=== PATIENT | female | born 1950 | race Caucasian/White ===

== ENCOUNTER → 2016-07-24 | Day surgery (SDC) | payer MEDICARE, BC | LOC: MSO 14:11 | DX: Z12.11 Encounter for screening for malignant neoplasm of colon (principal); D12.5 Benign neoplasm of sigmoid colon; K57.30 Diverticulosis of large intestine without perforation or abscess without bleeding; K21.9 Gastro-esophageal reflux disease without esophagitis; K22.70 Barrett's esophagus without dysplasia; Z85.3 Personal history of malignant neoplasm of breast; Z85.820 Personal history of malignant melanoma of skin; Z85.41 Personal history of malignant neoplasm of cervix uteri | CPT/HCPCS: 00810; J3010; J7120 ==

== ENCOUNTER → 2017-03-13 | Outpatient (CLI) | payer MEDICARE, BC | LOC: RAD 09:02 | DX: K22.70 Barrett's esophagus without dysplasia (principal); K21.9 Gastro-esophageal reflux disease without esophagitis; R10.13 Epigastric pain; K76.9 Liver disease, unspecified | CPT/HCPCS: Q9967 ==

== ENCOUNTER → 2017-06-29 | Outpatient (CLI) | payer MEDICARE, BC | LOC: RAD 14:00 | DX: R05 Cough (principal); R06.02 Shortness of breath ==

== ENCOUNTER → 2017-07-05 | Outpatient (CLI) | payer MEDICARE, BC ==
[2017-07-05 13:15] LABS: EOS # 0.1 (0.04-0.40); EOS % 1.5 % (1.0-5.0); HEMATOCRIT 44.2 % (37.0-47.0); HEMOGLOBIN 14.3 g/dL (12.5-16.0); LYMPH# 1.8 (1.50-4.00); MEAN CELL VOLUME 94 fl (78-100); MEAN CORPUSCULAR HEMOGLOBIN 31 pg (27-31); MEAN CORPUSCULAR HGB CONC 32 g/dL (33-37); MEAN PLATELET VOLUME 9.3 fl (7.4-10.4); MONO # 0.5 (0.20-0.80); NEU # 3.5 (1.40-6.50); PLATELET COUNT 182 K/mm3 (130-400); RED BLOOD COUNT 4.68 M/mm3 (4.10-5.30); RED CELL DISTRIBUTION WIDTH 13.4 % (11.5-14.5); WHITE BLOOD COUNT 5.9 K/mm3 (4.8-10.8)
[2017-07-05 13:27] LABS: ALBUMIN 3.5 g/dL (3.5-5.0); BUN/CREATININE RATIO 19.6 (6.0-26.0); CALCIUM 9.2 mg/dL (8.4-10.2); POTASSIUM 3.6 mmol/L (3.6-5.0); TOTAL BILIRUBIN 0.5 mg/dL (0.2-1.3); TOTAL PROTEIN 6.6 g/dL (6.3-8.2)
[2017-07-08 22:17] LABS: GRAM STAIN AMS
== END ==
LOC: RAD 13:01
PROVIDERS: Physician Assistant
DX: J98.4 Other disorders of lung (principal); Z88.0 Allergy status to penicillin

== ENCOUNTER → 2017-08-06 | Outpatient (CLI) | payer MEDICARE, BC | LOC: MAMMO 14:29 → RAD 14:30 → MAMMO 14:30 | DX: Z12.31 Encounter for screening mammogram for malignant neoplasm of breast (principal) ==

== ENCOUNTER 2018-09-08 12:56 | Outpatient (RCR) | payer MEDICARE, BC | END 2018-10-20 13:30 | LOC: PT 12:56 | DX: M22.41 Chondromalacia patellae, right knee (principal); M22.42 Chondromalacia patellae, left knee ==

== ENCOUNTER → 2019-02-11 | Outpatient (CLI) | payer MEDICARE, BC ==
[2019-02-11 09:39] LABS: EOS # 0.1 (0.04-0.40); EOS % 2.6 % (1.0-5.0); HEMATOCRIT 42.3 % (37.0-47.0); HEMOGLOBIN 13.7 g/dL (12.5-16.0); LYMPH# 1.3 (1.50-4.00); MEAN CELL VOLUME 95 fl (78-100); MEAN CORPUSCULAR HEMOGLOBIN 31 pg (27-31); MEAN CORPUSCULAR HGB CONC 32 g/dL (33-37); MEAN PLATELET VOLUME 9.2 fl (7.4-10.4); MONO # 0.4 (0.20-0.80); NEU # 2.1 (1.40-6.50); PLATELET COUNT 240 K/mm3 (130-400); RED BLOOD COUNT 4.47 M/mm3 (4.10-5.30); RED CELL DISTRIBUTION WIDTH 12.4 % (11.5-14.5); WHITE BLOOD COUNT 3.9 K/mm3 (4.8-10.8)
[2019-02-11 09:47] LABS: ALBUMIN 3.8 g/dL (3.4-4.8); POTASSIUM 3.5 mmol/L (3.5-5.1)
[2019-02-11 09:49] LABS: TOTAL PROTEIN 6.4 g/dL (6.2-8.1)
[2019-02-11 09:51] LABS: TOTAL BILIRUBIN 0.7 mg/dL (0.2-1.2)
== END ==
LOC: LAB 09:25
PROVIDERS: Internal Medicine Interventional Cardiology
DX: I77.3 Arterial fibromuscular dysplasia (principal)

== ENCOUNTER → 2019-03-05 | Day surgery (SDC) | payer MEDICARE, BC ==
[2019-03-05 08:06] LABS: CALCIUM 7.1 mg/dL (8.3-10.5)
== END ==
LOC: MSO 07:13 → LAB 07:13 → MSO 10:35
PROVIDERS: Internal Medicine Gastroenterology
DX: K22.70 Barrett's esophagus without dysplasia (principal); K21.9 Gastro-esophageal reflux disease without esophagitis; R10.13 Epigastric pain; I10 Essential (primary) hypertension; Z79.899 Other long term (current) drug therapy; Z88.0 Allergy status to penicillin; Z88.2 Allergy status to sulfonamides; F32.9 Major depressive disorder, single episode, unspecified; G43.909 Migraine, unspecified, not intractable, without status migrainosus; C50.919 Malignant neoplasm of unspecified site of unspecified female breast; Z77.123 Contact with and (suspected) exposure to radon and other naturally occurring radiation; H40.9 Unspecified glaucoma; Z90.710 Acquired absence of both cervix and uterus
CPT/HCPCS: 00731; J2704; J7120

== ENCOUNTER → 2019-04-21 | Outpatient (CLI) | payer MEDICARE, BC | LOC: MAMMO 10:42 | DX: Z12.31 Encounter for screening mammogram for malignant neoplasm of breast (principal) ==

== ENCOUNTER 2019-08-01 12:22 | Emergency (ER) | payer MEDICARE, BC ==
[~2019-08-01] VITALS: Ht 170.2 cm; Wt 68.2 kg
[2019-08-01] MEDS ORDERED: PRAVASTATIN SOD20 MG PO (12:38)
[2019-08-01] MEDS ORDERED: LOSARTAN POTASS25 MG PO (12:39)
[2019-08-01] MEDS ORDERED: AMITRIPTYLINE H10 M2 PO (12:40)
[2019-08-01] MEDS ORDERED: LATANOPROST 2.2.5 ML OU (12:41)
[2019-08-01] MEDS ORDERED: LEXAPRO20 M1 PO (12:41)
[2019-08-01] MEDS ORDERED: CHOLESTYRAMINE1 PO1 PO (12:41)
[2019-08-01] MEDS ORDERED: NIACIN1000 MG PO (12:41)
[2019-08-01] MEDS ORDERED: ULTRAM50 M1 PO (12:42)
[2019-08-01] MEDS ORDERED: EVISTA 60MG60 MG/TAB PO (12:43)
[2019-08-01] MEDS ORDERED: OXYCODONE5 M1 PO (12:43)
[2019-08-01 13:33] LABS: EOS # 0.1 (0.04-0.40); HEMATOCRIT 39.1 % (37.0-47.0); MEAN CELL VOLUME 94 fl (78-100); MEAN CORPUSCULAR HEMOGLOBIN 29 pg (27-31); MEAN CORPUSCULAR HGB CONC 31 g/dL (33-37); MEAN PLATELET VOLUME 8.7 fl (7.4-10.4); MONO # 0.4 (0.20-0.80); NEU # 2.5 (1.40-6.50); PLATELET COUNT 360 K/mm3 (130-400); RED BLOOD COUNT 4.15 M/mm3 (4.10-5.30); RED CELL DISTRIBUTION WIDTH 13.4 % (11.5-14.5); WHITE BLOOD COUNT 3.9 K/mm3 (4.8-10.8)
[2019-08-01 14:17] LABS: D-DIMER 4.55 mg/L FEU (0.15-0.50)
[2019-08-01 14:38] LABS: POTASSIUM 3.5 mmol/L (3.5-5.1)
[2019-08-01 14:39] LABS: CALCIUM 9.5 mg/dL (8.3-10.5)
[2019-08-01 16:42] VITALS: BP 154/75
== END 2019-08-01 16:42 | disposition home or self-care (01) ==
LOC: ED 12:22
PROVIDERS: Family Medicine
DX: F41.9 Anxiety disorder, unspecified (principal); E86.9 Volume depletion, unspecified; I10 Essential (primary) hypertension; E78.5 Hyperlipidemia, unspecified; Z96.652 Presence of left artificial knee joint
CPT/HCPCS: J7030; Q9967

== ENCOUNTER → 2019-11-16 | Outpatient (CLI) | payer MEDICARE, BC ==
[~2019-11-16] MED LIST: AMITRIPTYLINE H10 M2 PO; CHOLESTYRAMINE1 PO1 PO; EVISTA 60MG60 MG/TAB PO; LATANOPROST 2.2.5 ML OU; LEXAPRO20 M1 PO; LOSARTAN POTASS25 MG PO; NIACIN1000 MG PO; OXYCODONE5 M1 PO; PRAVASTATIN SOD20 MG PO; ULTRAM50 M1 PO
[2019-11-16 13:42] LABS: POTASSIUM 3.3 mmol/L (3.5-5.1)
[2019-11-16 13:44] LABS: CALCIUM 9.2 mg/dL (8.3-10.5)
== END ==
LOC: LAB 13:12
PROVIDERS: Internal Medicine Nephrology
DX: I15.8 Other secondary hypertension (principal)

== ENCOUNTER → 2019-11-23 | Outpatient (CLI) | payer MEDICARE, BC ==
[2019-11-23 12:30] LABS: URINE APPEARANCE CLEAR; URINE BILIRUBIN NEGATIVE (NEGATIVE); URINE BLOOD NEGATIVE (NEGATIVE); URINE COLOR YELLOW; URINE GLUCOSE NEGATIVE (NEGATIVE); URINE KETONE NEGATIVE (NEGATIVE); URINE LEUKOCYTE ESTERASE NEGATIVE (NEGATIVE); URINE NITRATE NEGATIVE (NEGATIVE); URINE PROTEIN(semi-quant) NEGATIVE (NEGATIVE); URINE UROBILINOGEN NORMAL (NORMAL)
[2019-11-23 12:32] LABS: POTASSIUM 3.7 mmol/L (3.5-5.1)
[2019-11-23 12:33] LABS: CALCIUM 9.3 mg/dL (8.3-10.5)
== END ==
LOC: LAB 11:59
PROVIDERS: Internal Medicine Nephrology
DX: I15.8 Other secondary hypertension (principal); N17.8 Other acute kidney failure

== ENCOUNTER → 2019-12-29 | Outpatient (CLI) | payer MEDICARE, BC ==
[2019-12-29 11:23] LABS: URINE APPEARANCE CLEAR; URINE BILIRUBIN NEGATIVE (NEGATIVE); URINE BLOOD NEGATIVE (NEGATIVE); URINE COLOR YELLOW; URINE GLUCOSE NEGATIVE (NEGATIVE); URINE KETONE NEGATIVE (NEGATIVE); URINE LEUKOCYTE ESTERASE NEGATIVE (NEGATIVE); URINE NITRATE NEGATIVE (NEGATIVE); URINE PROTEIN(semi-quant) NEGATIVE (NEGATIVE); URINE UROBILINOGEN NORMAL (NORMAL); URINE WBC 0-1 /hpf (0-3)
== END ==
LOC: LAB 10:32
PROVIDERS: Internal Medicine Nephrology
DX: I15.8 Other secondary hypertension (principal); N17.8 Other acute kidney failure

== ENCOUNTER → 2020-01-07 | Outpatient (CLI) | payer MEDICARE, BC ==
[2020-01-07 10:50] LABS: URINE WBC 0 /hpf (0-3)
[2020-01-07 11:15] LABS: URINE APPEARANCE CLEAR; URINE BILIRUBIN NEGATIVE (NEGATIVE); URINE BLOOD TRACE (NEGATIVE); URINE COLOR YELLOW; URINE GLUCOSE NEGATIVE (NEGATIVE); URINE KETONE NEGATIVE (NEGATIVE); URINE LEUKOCYTE ESTERASE NEGATIVE (NEGATIVE); URINE MUCUS PRESENT (NOT PRESENT); URINE NITRATE NEGATIVE (NEGATIVE); URINE PROTEIN(semi-quant) NEGATIVE (NEGATIVE); URINE UROBILINOGEN NORMAL (NORMAL)
== END ==
LOC: LAB 10:45
PROVIDERS: Internal Medicine Nephrology
DX: N17.8 Other acute kidney failure (principal); I15.8 Other secondary hypertension

== ENCOUNTER → 2020-03-03 | Outpatient (CLI) | payer MEDICARE, BC ==
[2020-03-03 11:45] LABS: EOS # 0.2 (0.04-0.40); EOS % 2.8 % (1.0-5.0); HEMATOCRIT 43.9 % (37.0-47.0); LYMPH# 1.4 (1.50-4.00); MEAN CELL VOLUME 94 fl (78-100); MEAN CORPUSCULAR HEMOGLOBIN 30 pg (27-31); MEAN CORPUSCULAR HGB CONC 32 g/dL (33-37); MONO # 0.6 (0.20-0.80); NEU # 3.2 (1.40-6.50); PLATELET COUNT 276 K/mm3 (130-400); RED BLOOD COUNT 4.69 M/mm3 (4.10-5.30); RED CELL DISTRIBUTION WIDTH 13.1 % (11.5-14.5); WHITE BLOOD COUNT 5.4 K/mm3 (4.8-10.8)
[2020-03-03 11:56] LABS: POTASSIUM 3.7 mmol/L (3.5-5.1)
[2020-03-03 11:58] LABS: CALCIUM 9.5 mg/dL (8.3-10.5)
== END ==
LOC: LAB 11:33
PROVIDERS: Internal Medicine Interventional Cardiology
DX: Z01.812 Encounter for preprocedural laboratory examination (principal); Z11.59 Encounter for screening for other viral diseases; I10 Essential (primary) hypertension; I70.1 Atherosclerosis of renal artery; I77.3 Arterial fibromuscular dysplasia

== ENCOUNTER → 2020-03-14 | Outpatient (CLI) | payer MEDICARE, BC ==
[2020-03-14 11:28] LABS: EOS # 0.2 (0.04-0.40); EOS % 2.8 % (1.0-5.0); HEMOGLOBIN 14.2 g/dL (12.5-16.0); LYMPH# 1.2 (1.50-4.00); MEAN CELL VOLUME 94 fl (78-100); MEAN CORPUSCULAR HEMOGLOBIN 30 pg (27-31); MEAN CORPUSCULAR HGB CONC 32 g/dL (33-37); MEAN PLATELET VOLUME 9.4 fl (7.4-10.4); MONO # 0.6 (0.20-0.80); NEU # 3.7 (1.40-6.50); PLATELET COUNT 248 K/mm3 (130-400); RED BLOOD COUNT 4.69 M/mm3 (4.10-5.30); RED CELL DISTRIBUTION WIDTH 13.2 % (11.5-14.5); WHITE BLOOD COUNT 5.7 K/mm3 (4.8-10.8)
[2020-03-14 11:37] LABS: POTASSIUM 3.7 mmol/L (3.5-5.1)
[2020-03-14 11:38] LABS: CALCIUM 8.9 mg/dL (8.3-10.5)
== END ==
LOC: LAB 11:10
PROVIDERS: Internal Medicine Interventional Cardiology
DX: I10 Essential (primary) hypertension (principal); I70.1 Atherosclerosis of renal artery; I77.3 Arterial fibromuscular dysplasia

== ENCOUNTER → 2020-05-10 | Outpatient (CLI) | payer MEDICARE, BC | LOC: RAD 09:01 | DX: I77.3 Arterial fibromuscular dysplasia (principal) | CPT/HCPCS: A9585 ==

== ENCOUNTER → 2020-05-12 | Outpatient (CLI) | payer MEDICARE, BC | LOC: MAMMO 09:42 | DX: Z12.31 Encounter for screening mammogram for malignant neoplasm of breast (principal); Z98.82 Breast implant status; Z98.890 Other specified postprocedural states ==

== ENCOUNTER → 2020-07-13 | Outpatient (CLI) | payer MEDICARE, BC ==
[2020-07-13 12:33] LABS: POTASSIUM 4.2 mmol/L (3.5-5.1)
[2020-07-13 12:34] LABS: CALCIUM 9.3 mg/dL (8.3-10.5)
== END ==
LOC: LAB 12:03
PROVIDERS: Internal Medicine Nephrology
DX: I77.89 Other specified disorders of arteries and arterioles (principal); N17.8 Other acute kidney failure

== ENCOUNTER 2020-07-16 16:02 | Emergency (ER) | payer MEDICARE, BC ==
[~2020-07-16] VITALS: Wt 67.4 kg
[~2020-07-16 16:02] MED LIST changes: -PRAVASTATIN SOD20 MG PO; +PRAVASTATIN SOD40 MG PO
[2020-07-16 17:09] LABS: MEAN CELL VOLUME 94 fl (78-100); MEAN CORPUSCULAR HEMOGLOBIN 31 pg (27-31); MEAN CORPUSCULAR HGB CONC 33 g/dL (33-37); MEAN PLATELET VOLUME 9.4 fl (7.4-10.4); PLATELET COUNT 268 K/mm3 (130-400); RED BLOOD COUNT 4.57 M/mm3 (4.10-5.30); RED CELL DISTRIBUTION WIDTH 12.8 % (11.5-14.5)
[2020-07-16 17:15] LABS: POTASSIUM 3.6 mmol/L (3.5-5.1)
[2020-07-16 17:16] LABS: CALCIUM 8.9 mg/dL (8.3-10.5)
[2020-07-16 17:26] LABS: BAND 2 % (0-10); LYMPHOCYTE 9 % (20-51); MONOCYTE 7 % (3-10); NEUTROPHILS 82 % (42-75)
[2020-07-16 19:34] VITALS: BP 150/79
== END 2020-07-16 19:36 | disposition home or self-care (01) ==
LOC: ED 16:02
PROVIDERS: Family Medicine
DX: S51.851A Open bite of right forearm, initial encounter (principal); L08.9 Local infection of the skin and subcutaneous tissue, unspecified; I95.1 Orthostatic hypotension; E78.5 Hyperlipidemia, unspecified; W55.01XA Bitten by cat, initial encounter
CPT/HCPCS: J0696; J1885; J7030

== ENCOUNTER 2020-08-01 11:00 | Outpatient (RCR) | payer MEDICARE, BC | END 2020-08-01 16:30 | disposition home or self-care (01) | LOC: OT 11:00 | DX: M79.644 Pain in right finger(s) (principal) ==

== ENCOUNTER → 2020-09-13 | Outpatient (CLI) | payer MEDICARE, BC | LOC: LAB 14:56 | DX: Z01.812 Encounter for preprocedural laboratory examination (principal); M79.641 Pain in right hand; Z20.822 Contact with and (suspected) exposure to COVID-19 ==

== ENCOUNTER → 2021-07-04 | Outpatient (CLI) | payer MEDICARE, BC | LOC: MAMMO 13:00 | DX: Z12.31 Encounter for screening mammogram for malignant neoplasm of breast (principal) ==

== ENCOUNTER → 2021-07-18 | Outpatient (CLI) | payer MEDICARE, BC ==
[2021-07-18 14:57] LABS: POTASSIUM 3.7 mmol/L (3.5-5.1)
[2021-07-18 14:59] LABS: CALCIUM 9.7 mg/dL (8.3-10.5)
[2021-07-18 23:45] LABS: CREATININE OTHER SOURCE 20 mg/dL (())
== END ==
LOC: LAB 14:18
PROVIDERS: Internal Medicine Nephrology
DX: I77.89 Other specified disorders of arteries and arterioles (principal); N17.8 Other acute kidney failure; I15.8 Other secondary hypertension

== ENCOUNTER 2021-09-13 14:57 | Outpatient (RCR) | payer MEDICARE, BC | END 2021-09-30 | disposition still patient (30) | LOC: PT | DX: M17.11 Unilateral primary osteoarthritis, right knee (principal) ==

== ENCOUNTER 2021-10-02 15:25 | Outpatient (RCR) | payer MEDICARE, BC | END 2021-10-31 | disposition home or self-care (01) | LOC: PT | DX: M17.11 Unilateral primary osteoarthritis, right knee (principal) ==

== ENCOUNTER → 2022-07-25 | Outpatient (CLI) | payer MEDICARE, BC ==
[2022-07-25 16:15] LABS: POTASSIUM 3.8 mmol/L (3.5-5.1)
[2022-07-25 16:16] LABS: CALCIUM 9.6 mg/dL (8.3-10.5)
== END ==
LOC: LAB 15:54
PROVIDERS: Internal Medicine Nephrology
DX: I77.89 Other specified disorders of arteries and arterioles (principal); I15.8 Other secondary hypertension; N17.8 Other acute kidney failure

== ENCOUNTER → 2022-07-30 | Outpatient (CLI) | payer MEDICARE, BC | LOC: LAB 09:28 | DX: I77.89 Other specified disorders of arteries and arterioles (principal); I15.8 Other secondary hypertension; N17.8 Other acute kidney failure ==

== ENCOUNTER → 2023-07-24 | Outpatient (CLI) | payer MEDICARE, BC ==
[2023-07-24 12:03] LABS: CALCIUM 9.7 mg/dL (8.3-10.5)
== END ==
LOC: LAB 11:41
PROVIDERS: Internal Medicine Nephrology
DX: N17.8 Other acute kidney failure (principal); I15.8 Other secondary hypertension; I77.89 Other specified disorders of arteries and arterioles

== ENCOUNTER → 2023-11-28 | Outpatient (CLI) | payer MEDICARE, BC | LOC: MAMMO 09:36 | DX: Z12.31 Encounter for screening mammogram for malignant neoplasm of breast (principal); M81.0 Age-related osteoporosis without current pathological fracture; Z85.3 Personal history of malignant neoplasm of breast ==

== ENCOUNTER → 2024-01-10 | Outpatient (CLI) | payer MEDICARE, BC ==
[2024-01-10 15:42] LABS: CALCIUM 9.8 mg/dL (8.3-10.5)
== END ==
LOC: LAB 15:17
PROVIDERS: Internal Medicine Nephrology
DX: I15.8 Other secondary hypertension (principal); N17.8 Other acute kidney failure; I77.89 Other specified disorders of arteries and arterioles

== ENCOUNTER 2024-03-19 12:03 | Emergency (ER) | payer MEDICARE, BC ==
[~2024-03-19] VITALS: Ht 167.6 cm; Wt 67.4 kg
[2024-03-19 12:48] LABS: BASO # 0.02 K/mm3 (0.02-0.10); EOS # 0.15 K/mm3 (0.04-0.40); EOS % 2.7 % (1.0-5.0); HEMATOCRIT 44.2 % (37.0-47.0); HEMOGLOBIN 14.4 g/dL (12.5-16.0); LYMPH# 1.36 K/mm3 (1.50-4.00); MEAN CELL VOLUME 93 fl (78-100); MEAN CORPUSCULAR HEMOGLOBIN 30 pg (27-31); MEAN CORPUSCULAR HGB CONC 33 g/dL (33-37); MEAN PLATELET VOLUME 9.4 fl (7.4-10.4); MONO # 0.55 K/mm3 (0.20-0.80); NEU # 3.44 K/mm3 (1.40-6.50); PLATELET COUNT 252 K/mm3 (130-400); RED BLOOD COUNT 4.78 M/mm3 (4.10-5.30); RED CELL DISTRIBUTION WIDTH 13.4 % (11.5-14.5); WHITE BLOOD COUNT 5.5 K/mm3 (4.8-10.8)
[2024-03-19 12:59] LABS: CALCIUM 9.7 mg/dL (8.3-10.5)
[2024-03-19 13:01] LABS: TOTAL PROTEIN 6.6 g/dL (6.2-8.1)
[2024-03-19 13:02] LABS: TOTAL BILIRUBIN 0.5 mg/dL (0.2-1.2)
[2024-03-19 13:12] LABS: D-DIMER 0.76 mg/L FEU (0.15-0.50)
[2024-03-19] MEDS ORDERED: Iohexol 350 - 100 ML VIAL IV ONE (13:30)
[2024-03-19 14:11] VITALS: BP 108/72
== END 2024-03-19 14:22 | disposition home or self-care (01) ==
LOC: ED 12:03
PROVIDERS: Nurse Practitioner
DX: J40 Bronchitis, not specified as acute or chronic (principal); F41.9 Anxiety disorder, unspecified; R79.89 Other specified abnormal findings of blood chemistry; Z85.828 Personal history of other malignant neoplasm of skin
CPT/HCPCS: Q9967

== ENCOUNTER → 2024-03-19 | Outpatient (CLI) | payer MEDICARE, BC | LOC: RAD 11:49 | DX: J18.9 Pneumonia, unspecified organism (principal) ==

== ENCOUNTER 2024-04-01 10:57 | Emergency (ER) | payer MEDICARE, BC ==
[~2024-04-01] VITALS: Ht 170.2 cm; Wt 67.4 kg
[2024-04-01 12:39] LABS: BASO # 0.02 K/mm3 (0.02-0.10); EOS # 0.22 K/mm3 (0.04-0.40); HEMATOCRIT 41.6 % (37.0-47.0); HEMOGLOBIN 13.6 g/dL (12.5-16.0); LYMPH# 1.03 K/mm3 (1.50-4.00); MEAN CELL VOLUME 93 fl (78-100); MEAN CORPUSCULAR HEMOGLOBIN 30 pg (27-31); MEAN CORPUSCULAR HGB CONC 33 g/dL (33-37); MEAN PLATELET VOLUME 9.4 fl (7.4-10.4); MONO # 0.97 K/mm3 (0.20-0.80); NEU # 8.48 K/mm3 (1.40-6.50); PLATELET COUNT 237 K/mm3 (130-400); RED BLOOD COUNT 4.47 M/mm3 (4.10-5.30); WHITE BLOOD COUNT 10.8 K/mm3 (4.8-10.8)
[2024-04-01 12:46] LABS: ALBUMIN 3.4 g/dL (3.4-4.8)
[2024-04-01 12:47] LABS: CALCIUM 9.3 mg/dL (8.3-10.5)
[2024-04-01 12:51] LABS: TOTAL BILIRUBIN 0.3 mg/dL (0.2-1.2)
[2024-04-01] MEDS ORDERED: DIFLUCAN100 M1 PO (13:11)
[2024-04-01] MEDS ORDERED: BACTRIM DS TAB1 EACH PO (13:11)
[2024-04-01 13:27] VITALS: BP 118/65
== END 2024-04-01 13:12 | disposition home or self-care (01) ==
LOC: ED 10:57
PROVIDERS: Family Medicine
DX: S61.452A Open bite of left hand, initial encounter (principal); L03.114 Cellulitis of left upper limb; Z88.0 Allergy status to penicillin; Z88.2 Allergy status to sulfonamides; W55.01XA Bitten by cat, initial encounter
CPT/HCPCS: J0696

== ENCOUNTER → 2024-06-23 | Outpatient (CLI) | payer MEDICARE, BC ==
[~2024-06-23] MED LIST changes: +BACTRIM DS TAB1 EACH PO; +DIFLUCAN100 M1 PO
[2024-06-23 16:12] LABS: BASO # 0.02 K/mm3 (0.02-0.10); EOS # 0.06 K/mm3 (0.04-0.40); EOS % 1.1 % (1.0-5.0); LYMPH# 1.14 K/mm3 (1.50-4.00); MEAN CELL VOLUME 94 fl (78-100); MEAN CORPUSCULAR HEMOGLOBIN 31 pg (27-31); MEAN CORPUSCULAR HGB CONC 33 g/dL (33-37); MEAN PLATELET VOLUME 9.6 fl (7.4-10.4); MONO # 0.45 K/mm3 (0.20-0.80); NEU # 3.98 K/mm3 (1.40-6.50); PLATELET COUNT 274 K/mm3 (130-400); RED BLOOD COUNT 4.56 M/mm3 (4.10-5.30); WHITE BLOOD COUNT 5.7 K/mm3 (4.8-10.8)
[2024-06-23 16:20] LABS: ALBUMIN 4.2 g/dL (3.4-4.8)
[2024-06-23 16:24] LABS: TOTAL BILIRUBIN 0.6 mg/dL (0.2-1.2)
[2024-06-23 16:29] LABS: MAGNESIUM 2.06 mg/dL (1.60-2.60)
== END ==
LOC: LAB 15:49
PROVIDERS: Internal Medicine
DX: I70.1 Atherosclerosis of renal artery (principal); E78.00 Pure hypercholesterolemia, unspecified; M81.0 Age-related osteoporosis without current pathological fracture; R41.3 Other amnesia

== ENCOUNTER → 2024-07-13 | Outpatient (CLI) | payer MEDICARE, BC ==
[2024-07-13 13:12] LABS: CALCIUM 9.4 mg/dL (8.3-10.5)
== END ==
LOC: LAB 12:44
PROVIDERS: Internal Medicine Nephrology
DX: I15.8 Other secondary hypertension (principal); I77.89 Other specified disorders of arteries and arterioles; N17.8 Other acute kidney failure

== ENCOUNTER → 2024-07-20 | Outpatient (CLI) | payer MEDICARE, BC ==
[~2024-07-20] MED LIST changes: +Iohexol 350 - 100 ML VIAL IV ONE; +NS 100 ML IV ONE
== END ==
LOC: RAD 08:42
DX: Z13.6 Encounter for screening for cardiovascular disorders (principal); I67.1 Cerebral aneurysm, nonruptured; Z82.49 Family history of ischemic heart disease and other diseases of the circulatory system
CPT/HCPCS: Q9967